=== PATIENT | male | born 1940 | race Native Hawaiian/Other Pacific Islander ===

== ENCOUNTER 2016-11-03 14:39 | Outpatient (CLI) | payer OTHER ==
[~2016-11-03 14:39] MED LIST: ALLO300T23 PO; CARDURA4 MG PO; CARDURA8 MG PO; CETI10TA PO; FLUTICASONE50 MCG; LEVO0.0218 PO; LIPITOR20 MG PO; METOPROLOL25 M1 PO; PRAVACHOL20 MG PO; SINGULAIR10 MG PO; VIAGRA100 MG PO; WARF3TAB12 PO; WARF4TAB7 PO
== END 2016-11-03 20:17 | disposition home or self-care (01) ==
LOC: RAD 14:39
DX: S69.82XA Other specified injuries of left wrist, hand and finger(s), initial encounter (principal); S20.212A Contusion of left front wall of thorax, initial encounter

== ENCOUNTER 2018-05-11 05:46 | Outpatient (CLI) | payer OTHER ==
[2018-05-11 06:16] LABS: PLATELET COUNT 164 K/uL (142-355)
[2018-05-11 06:37] LABS: POTASSIUM 4.6 mmol/L (3.6-5.2)
== END 2018-05-11 23:42 | disposition home or self-care (01) ==
LOC: LABW 05:46
PROVIDERS: Internal Medicine
DX: Z00.01 Encounter for general adult medical examination with abnormal findings (principal); E66.9 Obesity, unspecified; I48.91 Unspecified atrial fibrillation; E03.9 Hypothyroidism, unspecified; E78.5 Hyperlipidemia, unspecified; Z79.899 Other long term (current) drug therapy
CPT/HCPCS: 36415; 80053; 80061; 81000; 82306; 82607; 84443; 85027

== ENCOUNTER 2020-02-24 10:05 | Outpatient (CLI) | payer OTHER | END 2020-02-24 18:56 | disposition home or self-care (01) | LOC: MRI 10:05 | DX: M54.5 Low back pain (principal) ==

== ENCOUNTER 2022-09-22 07:47 | Outpatient (CLI) | payer OTHER ==
[~2022-09-22] VITALS: Ht 167.6 cm; Wt 97.5 kg
[2022-09-22 08:03] VITALS: BP 126/83; TEMP 97.4
[2022-09-22 09:52] VITALS: BP 135/78; TEMP 97.8
== END 2022-09-22 21:35 | disposition home or self-care (01) ==
LOC: INF 07:47
PROVIDERS: ATTEND Internal Medicine
DX: D64.9 Anemia, unspecified (principal)
CPT/HCPCS: 96365; J1756

== ENCOUNTER 2022-09-29 07:52 | Outpatient (CLI) | payer OTHER ==
[~2022-09-29] VITALS: Ht 167.6 cm; Wt 98.0 kg
[2022-09-29 08:00] VITALS: BP 108/68; TEMP 97.5
[2022-09-29 09:13] VITALS: BP 124/69; TEMP 98
== END 2022-09-29 19:02 | disposition home or self-care (01) ==
LOC: INF 07:52
PROVIDERS: ATTEND Internal Medicine
DX: D64.9 Anemia, unspecified (principal)
CPT/HCPCS: 96365; J1756

== ENCOUNTER 2022-10-06 08:10 | Outpatient (CLI) | payer OTHER | END 2022-10-06 19:21 | disposition home or self-care (01) | LOC: LABW 08:10 | PROVIDERS: ATTEND Nurse Practitioner Family | DX: D64.9 Anemia, unspecified (principal) | CPT/HCPCS: 36415; 83540; 85014; 85018 ==

== ENCOUNTER 2023-02-19 12:25 | Outpatient (CLI) | payer OTHER ==
[~2023-02-19] VITALS: Ht 167.6 cm; Wt 98.0 kg
[2023-02-19 12:31] VITALS: BP 147/75; TEMP 97.4
== END 2023-02-19 19:21 | disposition home or self-care (01) ==
LOC: INF 12:25
PROVIDERS: ATTEND Internal Medicine
DX: D50.8 Other iron deficiency anemias (principal)
CPT/HCPCS: 96365; J1756